=== PATIENT | male | born 1980 | race Two or more races ===

== ENCOUNTER 2023-01-08 12:16 | Day surgery (SDC) | payer OTHER ==
[~2023-01-08 12:16] MED LIST: CHILDREN'S ASPI81 MG PO; CRESTOR10 MG PO; REPATHA SU140 MG/1 M SUBCUTANEO
== END 2023-01-08 17:50 | disposition home or self-care (01) ==
LOC: CIR.AMB 12:16
PROVIDERS: ATTEND Orthopaedic Surgery
DX: S46.211A Strain of muscle, fascia and tendon of other parts of biceps, right arm, initial encounter (principal); I10 Essential (primary) hypertension; Z20.822 Contact with and (suspected) exposure to COVID-19; Z88.8 Allergy status to other drugs, medicaments and biological substances